=== PATIENT | male | born 1965 | race Hispanic/Latino ===

== ENCOUNTER 2021-08-20 16:31 | Inpatient (IN) | payer MEDICARE ==
[2021-08-20] MEDS ORDERED: Acetaminophen 500 MG TAB ONE (17:25)
[2021-08-20] MEDS ORDERED: Ondansetron PF 4 MG/2 ML Vial ONE (17:25)
[2021-08-20] MEDS ORDERED: Morphine 4 MG/ML VIAL ONE (17:25)
[2021-08-20 17:29] LABS: #Eosinphils 0.1 10x3/uL (0.0-0.5); #Monocytes 0.8 10x3/uL (0.0-1.1); #Neutrophils 6.6 10x3/uL (1.5-8.4); %Basophils 0.3 % (0.0-2.0); %Eosinophils 0.8 % (0.0-6.0); %Monocytes 9.7 % (0.0-10.0); %Neutrophils 84.8 % (40.0-75.0); Hemoglobin 10.7 g/dL (13.5-17.5); Mean Corpuscular HGB CONC 32.1 g/dL (32.0-36.0); Mean Corpuscular Hemoglobin 33.2 pg (27.0-33.0); Mean Corpuscular Volume 103.4 fl (81.2-95.1); Mean Platelet Volume 12.1 fl (7.4-10.4); Platelet Count 100 10x3/uL (150-450); Red Blood Cell (RBC) Count 3.22 10x6/uL (4.32-5.72); White Blood Cell (WBC) Count 7.8 10x3/uL (3.5-10.5)
[2021-08-20 17:45] LABS: ALT (SGPT) 27 U/L (8-55); AST (SGOT) 22 U/L (5-34); Alkaline Phosphatase 119 U/L (40-110); Anion Gap 19 mmol/L (10-20); BUN (Urea Nitrogen) 34 mg/dL (8.4-25.7); Bilirubin, Total 0.6 mg/dL (0.2-1.2); Calc. Creatinine Clearance 0 mL/min (70-130); Calcium 9.2 mg/dL (7.8-10.44); Carbon Dioxide 27 mmol/L (22-29); Chloride 97 mmol/L (98-107); Globulin 2.7 g/dL (2.4-3.5); Glucose 411 mg/dL (70-105); Potassium 3.5 mmol/L (3.5-5.1); Protein, Total 6.7 g/dL (6.0-8.3); Sodium 139 mmol/L (136-145)
[2021-08-20 17:49] LABS: Large Platelets SLIGHT; Platelet Morphology Comment Appears Adequate
[2021-08-20 17:50] LABS: Anisocytosis SLIGHT = 6-15 cells (100X) (0-5/hpf); Macrocytosis SLIGHT = 6-15 cells (100X) (0-5/hpf); Microcytosis SLIGHT = 6-15 cells (100X) (0-5/hpf)
[2021-08-20 17:51] LABS: Basophilic Stippling SLIGHT = 1-2 cells (100X) (None Seen); Polychromasia SLIGHT = 2-3 cells (100X) (0-2/hpf)
[2021-08-20 18:08] LABS: CKMB 5.3 ng/mL (0-6.6)
[2021-08-20 18:20] LABS: SARS-CoV-2 NAA Rapid Test Not Detected (NotDetected)
[2021-08-20 18:23] LABS: Lipase 170 U/L (8-78)
[2021-08-20] MEDS ORDERED: Cefepime 2 GM VIAL ONE (18:56)
[2021-08-20] MEDS ORDERED: Levofloxacin 500 mg/D5W 100 ml Premix Bag ONE (19:22)
[2021-08-20] MEDS ORDERED: Acetaminophen 325 MG TAB PO PRN (21:48)
[2021-08-20 22:11] VITALS: BMI 38.7
[2021-08-20] MEDS ORDERED: Furosemide 40 MG TAB PO SCH (22:15)
[2021-08-20] MEDS ORDERED: Heparin 5,000 UNITS/ML VIAL SC SCH (22:15)
[2021-08-20] MEDS ORDERED: Tamsulosin HCl 0.4 MG CAP PO SCH (22:15)
[2021-08-20] MEDS ORDERED: Gabapentin 300 MG CAP PO SCH (22:15)
[2021-08-20] MEDS ORDERED: Atorvastatin Calcium 40 MG TAB PO SCH (22:15)
[2021-08-20] MEDS ORDERED: hydrALAZINE 25 MG TAB PO SCH (22:15)
[2021-08-20] MEDS: traMADol HCl 50 MG TAB PO PRN (23:07)
[2021-08-20 23:34] LABS: Magnesium 1.8 mg/dL (1.6-2.6)
[2021-08-20 23:41] LABS: Troponin I 0.134 ng/mL (< 0.028)
[2021-08-21 04:12] LABS: Anion Gap 15 mmol/L (10-20); BUN (Urea Nitrogen) 39 mg/dL (8.4-25.7); Calc. Creatinine Clearance 29 mL/min (70-130); Calcium 8.1 mg/dL (7.8-10.44); Carbon Dioxide 26 mmol/L (22-29); Chloride 101 mmol/L (98-107); Glucose 301 mg/dL (70-105); Potassium 3.6 mmol/L (3.5-5.1); Sodium 138 mmol/L (136-145)
[2021-08-21 04:14] LABS: #Monocytes 0.8 10x3/uL (0.0-1.1); #Neutrophils 7.2 10x3/uL (1.5-8.4); %Basophils 0.1 % (0.0-2.0); %Eosinophils 0.4 % (0.0-6.0); %Lymphocytes 5.6 % (18.0-47.0); %Monocytes 8.8 % (0.0-10.0); %Neutrophils 84.6 % (40.0-75.0); Hemoglobin 8.3 g/dL (13.5-17.5); Mean Corpuscular HGB CONC 31.2 g/dL (32.0-36.0); Mean Corpuscular Hemoglobin 32.8 pg (27.0-33.0); Mean Corpuscular Volume 105.1 fl (81.2-95.1); Mean Platelet Volume 12.2 fl (7.4-10.4); Platelet Count 93 10x3/uL (150-450); RBC Distribution Width 14.3 % (11.5-14.5); Red Blood Cell (RBC) Count 2.53 10x6/uL (4.32-5.72); White Blood Cell (WBC) Count 8.5 10x3/uL (3.5-10.5)
[2021-08-21] MEDS ORDERED: Insulin Regular 300 UNITS/3 ML VIAL SC SCH (04:30)
[2021-08-21 05:08] LABS: Hypochromia SLIGHT = 6-15 cells (100X) (0-5/hpf)
[2021-08-21 05:09] LABS: Platelet Morphology Comment Appears Decreased
[2021-08-21] MEDS: Levothyroxine Sodium 125 MCG TAB PO SCH (05:24)
[2021-08-21 06:14] LABS: Troponin I 0.117 ng/mL (< 0.028)
[2021-08-21] MEDS ORDERED: Amlodipine 5 MG TAB PO SCH (08:45)
[2021-08-21] MEDS: Lantus 1000 UNITS/10 ML VIAL SC SCH (09:12)
[2021-08-21] MEDS: Heparin 5,000 UNITS/ML VIAL SC SCH ×3 (09:13→20:01)
[2021-08-21] MEDS: Metoclopramide HCl 10 MG TAB PO SCH ×3 (09:14→20:02)
[2021-08-21] MEDS: Aspirin 81 mg Enteric Coated Tablet PO SCH (09:14)
[2021-08-21] MEDS: hydrALAZINE 25 MG TAB PO SCH ×2 (09:16→20:01)
[2021-08-21] MEDS: Furosemide 40 MG TAB PO SCH ×2 (09:17→20:00)
[2021-08-21] MEDS: Cefepime 0.5 GM, Admixture Fee 1 EACH in Sodium Chloride 0.9% 100 ML IVPB SCH (19:51)
[2021-08-21] MEDS: Gabapentin 300 MG CAP PO SCH (20:00)
[2021-08-21] MEDS: Atorvastatin Calcium 40 MG TAB PO SCH (20:00)
[2021-08-21] MEDS: Tamsulosin HCl 0.4 MG CAP PO SCH (20:01)
[2021-08-22] MEDS: Levothyroxine Sodium 125 MCG TAB PO SCH (05:47)
[2021-08-22] MEDS ORDERED: Heparin 10,000 UNITS/ 10 ML VIAL SLOW IVP PRN (08:48)
[2021-08-22] MEDS ORDERED: EPOETIN ALFA-EPBX (ESRD) 4,000 UNIT/ML VIAL IVP PRN (08:50)
[2021-08-22] MEDS ORDERED: Lantus 1000 UNITS/10 ML VIAL SC ONE (11:29)
[2021-08-22] MEDS ORDERED: Lantus 1000 UNITS/10 ML VIAL SC SCH ×2 (11:29→21:00)
[2021-08-22] MEDS: Lantus 1000 UNITS/10 ML VIAL SC SCH (13:53)
[2021-08-22] MEDS: Metoclopramide HCl 10 MG TAB PO SCH ×3 (14:04→20:54)
[2021-08-22] MEDS: Heparin 5,000 UNITS/ML VIAL SC SCH ×3 (14:04→20:55)
[2021-08-22] MEDS ORDERED: Fluticasone Propionate Nasal Spray 16 gm Bottle NASAL SCH (14:45)
[2021-08-22] MEDS ORDERED: Loratadine 10 MG TAB PO SCH (14:48)
[2021-08-22] MEDS: hydrALAZINE 25 MG TAB PO SCH ×2 (15:04→20:53)
[2021-08-22] MEDS: Furosemide 40 MG TAB PO SCH ×2 (15:06→20:54)
[2021-08-22] MEDS: Aspirin 81 mg Enteric Coated Tablet PO SCH (15:06)
[2021-08-22] MEDS ORDERED: traZODone HCl 50 MG TAB PO PRN (15:55)
[2021-08-22] MEDS ORDERED: Glimepiride 2 MG TAB PO SCH (17:00)
[2021-08-22] MEDS: Cefepime 0.5 GM, Admixture Fee 1 EACH in Sodium Chloride 0.9% 100 ML IVPB SCH (19:39)
[2021-08-22] MEDS: Gabapentin 300 MG CAP PO SCH (20:53)
[2021-08-22] MEDS: Atorvastatin Calcium 40 MG TAB PO SCH (20:54)
[2021-08-22] MEDS: Tamsulosin HCl 0.4 MG CAP PO SCH (20:54)
[2021-08-23 06:11] LABS: Hemoglobin 8.3 g/dL (13.5-17.5); Mean Corpuscular HGB CONC 31.3 g/dL (32.0-36.0); Mean Corpuscular Hemoglobin 32.7 pg (27.0-33.0); Mean Corpuscular Volume 104.3 fl (81.2-95.1); Mean Platelet Volume 11.9 fl (7.4-10.4); Platelet Count 92 10x3/uL (150-450); Red Blood Cell (RBC) Count 2.54 10x6/uL (4.32-5.72); White Blood Cell (WBC) Count 5.5 10x3/uL (3.5-10.5)
[2021-08-23] MEDS: Levothyroxine Sodium 125 MCG TAB PO SCH (06:42)
[2021-08-23] MEDS ORDERED: Glimepiride 2 MG TAB PO SCH (08:00)
[2021-08-23] MEDS: hydrALAZINE 25 MG TAB PO SCH (08:47)
[2021-08-23] MEDS: traMADol HCl 50 MG TAB PO PRN (08:47)
[2021-08-23] MEDS: Aspirin 81 mg Enteric Coated Tablet PO SCH (08:48)
[2021-08-23] MEDS: Furosemide 40 MG TAB PO SCH (08:48)
[2021-08-23] MEDS: Metoclopramide HCl 10 MG TAB PO SCH ×2 (08:52→16:35)
[2021-08-23] MEDS ORDERED: Fluticasone Propionate Nasal Spray 16 gm Bottle NASAL SCH ×2 (09:00)
[2021-08-23] MEDS ORDERED: Loratadine 10 MG TAB PO SCH (09:00)
[2021-08-23] MEDS: Heparin 5,000 UNITS/ML VIAL SC SCH ×2 (11:46→16:35)
[2021-08-23 17:23] VITALS: BP 198/81; TEMP 97.8
== END 2021-08-23 17:50 | disposition home or self-care (01) | DRG 871 ==
LOC: CSHERS 16:31 → CSHTELE 21:30
PROVIDERS: ADMIT Family Medicine; ATTEND Internal Medicine
DX: A41.9 Sepsis, unspecified organism (principal); N18.6 End stage renal disease; J96.01 Acute respiratory failure with hypoxia; J15.9 Unspecified bacterial pneumonia; I50.32 Chronic diastolic (congestive) heart failure; I13.2 Hypertensive heart and chronic kidney disease with heart failure and with stage 5 chronic kidney disease, or end stage renal disease; E11.22 Type 2 diabetes mellitus with diabetic chronic kidney disease; I25.10 Atherosclerotic heart disease of native coronary artery without angina pectoris; E78.5 Hyperlipidemia, unspecified; K21.9 Gastro-esophageal reflux disease without esophagitis; N40.0 Benign prostatic hyperplasia without lower urinary tract symptoms; G47.33 Obstructive sleep apnea (adult) (pediatric); E03.9 Hypothyroidism, unspecified; E11.43 Type 2 diabetes mellitus with diabetic autonomic (poly)neuropathy; K31.84 Gastroparesis; E11.65 Type 2 diabetes mellitus with hyperglycemia; Z20.822 Contact with and (suspected) exposure to COVID-19; I16.0 Hypertensive urgency; D69.6 Thrombocytopenia, unspecified; Z95.1 Presence of aortocoronary bypass graft; Z88.8 Allergy status to other drugs, medicaments and biological substances; Z79.82 Long term (current) use of aspirin; Z79.899 Other long term (current) drug therapy; Z79.4 Long term (current) use of insulin; Z87.891 Personal history of nicotine dependence; Z99.2 Dependence on renal dialysis
CPT/HCPCS: 0241U; 36415; 36416; 71045; 71046; 80048; 80053; 82553; 83605; 83690; 83735; 84484; 85025; 85027; 87040; 87070; 87116; 87205; 87206; 90935; 93005; 93010; 93306; 94640; 94760; 96365; 96367; 96375; G0257; J0692; J1644; J1815; J1956; J2270; J2405; J3370; J3490; J7620; Q5105

== ENCOUNTER 2022-05-29 10:19 | Inpatient (IN) | payer MEDICARE, OTHER ==
[2022-05-29] MEDS ORDERED: diphenhydrAMINE 50 MG/ML VIAL ONE (10:41)
[2022-05-29] MEDS ORDERED: Metoclopramide HCl 10 MG/2 ML VIAL ONE (10:42)
[2022-05-29 10:58] LABS: #Monocytes 0.4 10x3/uL (0.0-1.1); #Neutrophils 15.9 10x3/uL (1.5-8.4); %Basophils 0.4 % (0.0-2.0); %Eosinophils 0.8 % (0.0-6.0); %Lymphocytes 15.2 % (18.0-47.0); %Monocytes 7.3 % (0.0-10.0); %Neutrophils 75.5 % (40.0-75.0); Hemoglobin 10.8 g/dL (13.5-17.5); Mean Corpuscular HGB CONC 34.3 g/dL (32.0-36.0); Mean Corpuscular Hemoglobin 33.2 pg (27.0-33.0); Mean Corpuscular Volume 96.9 fl (81.2-95.1); Mean Platelet Volume 12.7 fl (7.4-10.4); Platelet Count 85 10x3/uL (150-450); RBC Distribution Width 13.6 % (11.5-14.5); Red Blood Cell (RBC) Count 3.25 10x6/uL (4.32-5.72); White Blood Cell (WBC) Count 4.9 10x3/uL (3.5-10.5)
[2022-05-29 11:10] LABS: ALT (SGPT) 16 U/L (8-55); AST (SGOT) 27 U/L (5-34); Albumin 4.3 g/dL (3.5-5.0); Alkaline Phosphatase 84 U/L (40-110); Anion Gap 20 mmol/L (10-20); BUN (Urea Nitrogen) 19 mg/dL (8.4-25.7); Bilirubin, Total 1.3 mg/dL (0.2-1.2); Calc. Creatinine Clearance 0 mL/min (70-130); Calcium 10.1 mg/dL (7.8-10.44); Carbon Dioxide 24 mmol/L (22-29); Chloride 97 mmol/L (98-107); Estimated GFR 16; Globulin 2.9 g/dL (2.4-3.5); Glucose 78 mg/dL (70-105); Lipase 353 U/L (8-78); Potassium 3.7 mmol/L (3.5-5.1); Protein, Total 7.2 g/dL (6.0-8.3); Sodium 137 mmol/L (136-145)
[2022-05-29 11:22] LABS: Platelet Morphology Comment Appears Decreased; RBC Morphology Normal
[2022-05-29 11:30] LABS: CKMB 4.7 ng/mL (0-6.6)
[2022-05-29] MEDS ORDERED: Morphine 4 MG/ML VIAL ONE ×3 (11:36→16:00)
[2022-05-29] MEDS ORDERED: Bisacodyl 5 MG TAB PO PRN (14:14)
[2022-05-29] MEDS ORDERED: Senokot S 8.6-50 MG TAB PO PRN (14:14)
[2022-05-29] MEDS ORDERED: Acetaminophen 325 MG TAB PO PRN (14:14)
[2022-05-29] MEDS ORDERED: Acetaminophen 650 MG Suppository PR PRN (14:14)
[2022-05-29] MEDS ORDERED: Ondansetron ODT 4 MG TAB PO PRN (14:14)
[2022-05-29] MEDS ORDERED: Calcium Carbonate 500 MG ChewTAB PO PRN (14:14)
[2022-05-29] MEDS ORDERED: Nitroglycerin 0.4 MG TAB (25 Tab Bottle) SL PRN (14:32)
[2022-05-29] MEDS ORDERED: hydrALAZINE 20 MG/ML VIAL SLOW IVP PRN (14:39)
[2022-05-29] MEDS ORDERED: Labetalol HCl 100 MG/20 ML VIAL SLOW IVP PRN (14:39)
[2022-05-29] MEDS ORDERED: Artificial Tear Sol 15 ML BOT EA EYE PRN (14:39)
[2022-05-29] MEDS ORDERED: Moisturizing Cream (Eucerin) 113 GM JAR TOP PRN (14:39)
[2022-05-29] MEDS ORDERED: Dextrose 5% in Water 1,000 ML IV PRN (14:46)
[2022-05-29] MEDS ORDERED: Dextrose 50% Abboject 50 ML SYRINGE SLOW IVP PRN (14:46)
[2022-05-29] MEDS ORDERED: Promethazine HCl 25 MG/ML VIAL ONE (15:00)
[2022-05-29 15:06] LABS: Lactic Acid 0.8 mmol/L (0.5-2.2)
[2022-05-29 15:26] LABS: Alcohol Less than 10 mg/dL (Less than 10); Cardiac Risk 2.1 (Less than 4.5); Cholesterol 90 mg/dl (< 200 Desired); HDL Cholesterol 42 mg/dL (>60 Neg Risk); LDL Cholesterol, Calculated 36 mg/dL; Triglycerides 60 mg/dL (Less than 150)
[2022-05-29 15:30] LABS: Troponin I 0.049 ng/mL (< 0.028)
[2022-05-29] MEDS ORDERED: Lactated Ringer's 1,000 ML IV SCH ×2 (15:45→16:34)
[2022-05-29 15:48] LABS: CRP (Inflammatory) Less than 0.50 mg/dL (= or < 0.5)
[2022-05-29 16:16] LABS: Bilirubin Neg (Negative); Blood, Urine 50 (Negative); Clarity Clear (Clear); Glucose, Urine (Dipstick) 50 mg/dL (Negative); Ketone, Urine Negative (Negative); Leukocyte Negative (Negative); Nitrite Negative (Negative); Protein, Urine (Dipstick) 100 mg/dl (Neg-Trace); Urobilinogen Normal mg/dL (Less than 2)
[2022-05-29 16:29] LABS: Bacteria/HPF None Seen HPF (None Seen); Squamous Epithelial 0-3 HPF (0-3); WBC/HPF None Seen HPF (0-3)
[2022-05-29] MEDS ORDERED: niCARdipine 25 MG in Sodium Chloride 0.9% 250 ML 250 ML IVPB SCH (16:30)
[2022-05-29 17:12] LABS: Lactic Acid 0.7 mmol/L (0.5-2.2)
[2022-05-29 17:47] LABS: Troponin I 0.052 ng/mL (< 0.028)
[2022-05-29 19:08] LABS: Free T4 (Free Thyroxine) 1.46 ng/dL (0.70-1.48)
[2022-05-29 19:19] VITALS: BMI 35.4
[2022-05-29] MEDS: Morphine 4 MG/ML VIAL SLOW IVP PRN (20:36)
[2022-05-29] MEDS: Famotidine/PF 20 mg/2ml Vial SLOW IVP SCH (20:37)
[2022-05-29] MEDS: Lactated Ringer's 1,000 ML IV SCH (20:38)
[2022-05-29] MEDS ORDERED: Nitroglycerin 2% Ointment 1 INCH/1 GM Packet TOP SCH (21:00)
[2022-05-29] MEDS ORDERED: Promethazine HCl 12.5 MG in Sodium Chloride 0.9% 50 ML IVPB SCH (21:00)
[2022-05-29] MEDS: Heparin 5,000 UNITS/ML VIAL SC SCH (21:40)
[2022-05-30] MEDS: Morphine 4 MG/ML VIAL SLOW IVP PRN ×6 (00:10→21:01)
[2022-05-30] MEDS: Ondansetron PF 4 MG/2 ML Vial IVP PRN ×3 (04:53→21:00)
[2022-05-30 04:58] LABS: #Eosinphils 0.1 10x3/uL (0.0-0.5); #Monocytes 0.4 10x3/uL (0.0-1.1); #Neutrophils 2.3 10x3/uL (1.5-8.4); %Basophils 0.6 % (0.0-2.0); %Eosinophils 1.4 % (0.0-6.0); %Lymphocytes 22.3 % (18.0-47.0); %Monocytes 10.7 % (0.0-10.0); %Neutrophils 64.7 % (40.0-75.0); Hemoglobin 8.8 g/dL (13.5-17.5); Mean Corpuscular HGB CONC 32.4 g/dL (32.0-36.0); Mean Corpuscular Volume 101.9 fl (81.2-95.1); Platelet Count 70 10x3/uL (150-450); RBC Distribution Width 14.1 % (11.5-14.5); Red Blood Cell (RBC) Count 2.67 10x6/uL (4.32-5.72); White Blood Cell (WBC) Count 3.6 10x3/uL (3.5-10.5)
[2022-05-30 05:13] LABS: ALT (SGPT) 10 U/L (8-55); AST (SGOT) 18 U/L (5-34); Albumin 3.5 g/dL (3.5-5.0); Alkaline Phosphatase 66 U/L (40-110); Anion Gap 11 mmol/L (10-20); BUN (Urea Nitrogen) 25 mg/dL (8.4-25.7); Bilirubin, Total 0.7 mg/dL (0.2-1.2); Calc. Creatinine Clearance 25 mL/min (70-130); Carbon Dioxide 29 mmol/L (22-29); Chloride 103 mmol/L (98-107); Estimated GFR 12; Globulin 2.5 g/dL (2.4-3.5); Lipase 41 U/L (8-78); Potassium 3.8 mmol/L (3.5-5.1); Sodium 139 mmol/L (136-145)
[2022-05-30 05:22] LABS: Glucose 49 mg/dL (70-105)
[2022-05-30] MEDS: Dextrose 5%-Lactated Ringers 1,000 ML IV SCH (05:47)
[2022-05-30] MEDS: Lactated Ringer's 1,000 ML IV SCH (07:56)
[2022-05-30] MEDS: Heparin 5,000 UNITS/ML VIAL SC SCH ×4 (07:56→20:12)
[2022-05-30] MEDS: Aspirin Chewable 81 MG TAB PO SCH (08:54)
[2022-05-30] MEDS ORDERED: Labetalol HCl 100 MG/20 ML VIAL SLOW IVP PRN (16:00)
[2022-05-30] MEDS ORDERED: hydrALAZINE 25 MG TAB PO SCH (16:15)
[2022-05-30] MEDS: hydrALAZINE 25 MG TAB PO SCH (20:11)
[2022-05-30] MEDS: Famotidine/PF 20 mg/2ml Vial SLOW IVP SCH (20:12)
[2022-05-31] MEDS: Morphine 4 MG/ML VIAL SLOW IVP PRN ×5 (00:54→22:06)
[2022-05-31] MEDS: hydrALAZINE 20 MG/ML VIAL SLOW IVP PRN ×2 (00:55→06:01)
[2022-05-31 03:55] LABS: #Eosinphils 0.1 10x3/uL (0.0-0.5); #Monocytes 0.4 10x3/uL (0.0-1.1); #Neutrophils 2.4 10x3/uL (1.5-8.4); %Basophils 0.2 % (0.0-2.0); %Eosinophils 3.3 % (0.0-6.0); %Lymphocytes 29.7 % (18.0-47.0); %Monocytes 9.5 % (0.0-10.0); %Neutrophils 57.1 % (40.0-75.0); Hemoglobin 9.8 g/dL (13.5-17.5); Mean Corpuscular HGB CONC 32.2 g/dL (32.0-36.0); Mean Corpuscular Hemoglobin 32.7 pg (27.0-33.0); Mean Corpuscular Volume 101.3 fl (81.2-95.1); Mean Platelet Volume 12.5 fl (7.4-10.4); Platelet Count 84 10x3/uL (150-450); RBC Distribution Width 14.2 % (11.5-14.5); White Blood Cell (WBC) Count 4.2 10x3/uL (3.5-10.5)
[2022-05-31] MEDS: Dextrose 5%-Lactated Ringers 1,000 ML IV SCH ×3 (03:55→16:20)
[2022-05-31 04:11] LABS: ALT (SGPT) 14 U/L (8-55); AST (SGOT) 20 U/L (5-34); Albumin 3.7 g/dL (3.5-5.0); Alkaline Phosphatase 70 U/L (40-110); Anion Gap 12 mmol/L (10-20); BUN (Urea Nitrogen) 19 mg/dL (8.4-25.7); Bilirubin, Total 0.7 mg/dL (0.2-1.2); Calc. Creatinine Clearance 25 mL/min (70-130); Calcium 9.1 mg/dL (7.8-10.44); Carbon Dioxide 28 mmol/L (22-29); Chloride 103 mmol/L (98-107); Estimated GFR 12; Globulin 2.7 g/dL (2.4-3.5); Glucose 98 mg/dL (70-105); Potassium 3.7 mmol/L (3.5-5.1); Protein, Total 6.4 g/dL (6.0-8.3); Sodium 139 mmol/L (136-145)
[2022-05-31] MEDS: Levothyroxine Sodium 125 MCG TAB PO SCH (05:56)
[2022-05-31] MEDS: Ondansetron PF 4 MG/2 ML Vial IVP PRN ×3 (06:01→22:05)
[2022-05-31] MEDS: hydrALAZINE 25 MG TAB PO SCH ×2 (09:56→21:52)
[2022-05-31] MEDS: Heparin 5,000 UNITS/ML VIAL SC SCH ×3 (09:56→21:45)
[2022-05-31] MEDS: Aspirin Chewable 81 MG TAB PO SCH (09:56)
[2022-05-31] MEDS ORDERED: Heparin 10,000 UNITS/ 10 ML VIAL FS PRN (10:05)
[2022-05-31] MEDS ORDERED: Amlodipine 5 MG TAB PO SCH (16:00)
[2022-05-31] MEDS: Famotidine/PF 20 mg/2ml Vial SLOW IVP SCH (22:06)
[2022-06-01] MEDS: hydrALAZINE 20 MG/ML VIAL SLOW IVP PRN (00:28)
[2022-06-01] MEDS: Dextrose 5%-Lactated Ringers 1,000 ML IV SCH ×3 (00:32→21:22)
[2022-06-01] MEDS: Morphine 4 MG/ML VIAL SLOW IVP PRN ×2 (01:36→11:09)
[2022-06-01] MEDS: Levothyroxine Sodium 125 MCG TAB PO SCH (05:59)
[2022-06-01] MEDS ORDERED: Amlodipine 5 MG TAB PO SCH ×2 (09:00→21:00)
[2022-06-01] MEDS: hydrALAZINE 25 MG TAB PO SCH ×2 (15:47→21:23)
[2022-06-01] MEDS: Aspirin Chewable 81 MG TAB PO SCH (15:48)
[2022-06-01] MEDS: Heparin 5,000 UNITS/ML VIAL SC SCH ×4 (16:44→21:22)
[2022-06-01] MEDS: Famotidine/PF 20 mg/2ml Vial SLOW IVP SCH (21:17)
[2022-06-02 04:01] LABS: #Eosinphils 0.1 10x3/uL (0.0-0.5); #Monocytes 0.4 10x3/uL (0.0-1.1); %Basophils 0.5 % (0.0-2.0); %Eosinophils 3.1 % (0.0-6.0); %Lymphocytes 21.6 % (18.0-47.0); %Monocytes 9.5 % (0.0-10.0); Mean Corpuscular HGB CONC 33.5 g/dL (32.0-36.0); Mean Corpuscular Hemoglobin 33.5 pg (27.0-33.0); Mean Platelet Volume 12.9 fl (7.4-10.4); RBC Distribution Width 13.8 % (11.5-14.5); Red Blood Cell (RBC) Count 3.28 10x6/uL (4.32-5.72); White Blood Cell (WBC) Count 3.9 10x3/uL (3.5-10.5)
[2022-06-02 04:02] LABS: Platelet Count 79 10x3/uL (150-450)
[2022-06-02 04:08] LABS: Anion Gap 14 mmol/L (10-20); BUN (Urea Nitrogen) 16 mg/dL (8.4-25.7); Calc. Creatinine Clearance 25 mL/min (70-130); Calcium 9.6 mg/dL (7.8-10.44); Carbon Dioxide 27 mmol/L (22-29); Chloride 99 mmol/L (98-107); Estimated GFR 12; Glucose 127 mg/dL (70-105); Potassium 3.9 mmol/L (3.5-5.1); Sodium 136 mmol/L (136-145)
[2022-06-02] MEDS: Levothyroxine Sodium 125 MCG TAB PO SCH (05:59)
[2022-06-02 06:30] VITALS: TEMP 97.9
[2022-06-02] MEDS ORDERED: Amlodipine 5 MG TAB PO SCH ×2 (09:00)
[2022-06-02 09:20] VITALS: BP 201/90
[2022-06-02] MEDS: Heparin 5,000 UNITS/ML VIAL SC SCH (09:43)
[2022-06-02] MEDS: Aspirin Chewable 81 MG TAB PO SCH (09:52)
[2022-06-02] MEDS: hydrALAZINE 25 MG TAB PO SCH (09:53)
== END 2022-06-02 11:00 | disposition home or self-care (01) | DRG 438 ==
LOC: CSHERS 10:19 → CSHTELE 15:24 → OBSVTOIN 15:25 → CSHTELE 19:07 → UNDOADMOB 19:07
PROVIDERS: ADMIT Family Medicine; ATTEND Family Medicine
PROC: 5A09357 Assistance with Respiratory Ventilation, Less than 24 Consecutive Hours, Continuous Positive Airway Pressure (ICD-10-PCS; principal; 2022-05-31)
PROC: 5A1D70Z Performance of Urinary Filtration, Intermittent, Less than 6 Hours Per Day (ICD-10-PCS; 2022-06-01)
DX: K85.90 Acute pancreatitis without necrosis or infection, unspecified (principal); N18.6 End stage renal disease; I16.1 Hypertensive emergency; I12.0 Hypertensive chronic kidney disease with stage 5 chronic kidney disease or end stage renal disease; E11.22 Type 2 diabetes mellitus with diabetic chronic kidney disease; E78.5 Hyperlipidemia, unspecified; I25.10 Atherosclerotic heart disease of native coronary artery without angina pectoris; R77.8 Other specified abnormalities of plasma proteins; R63.4 Abnormal weight loss; Z20.822 Contact with and (suspected) exposure to COVID-19; I16.0 Hypertensive urgency; E03.9 Hypothyroidism, unspecified; Z95.1 Presence of aortocoronary bypass graft; Z98.890 Other specified postprocedural states; Z89.422 Acquired absence of other left toe(s); Z88.8 Allergy status to other drugs, medicaments and biological substances; Z79.82 Long term (current) use of aspirin; Z79.899 Other long term (current) drug therapy; Z99.2 Dependence on renal dialysis; Z68.35 Body mass index [BMI] 35.0-35.9, adult
CPT/HCPCS: 36415; 36416; 71045; 74176; 76705; 80048; 80053; 80061; 80307; 81003; 81015; 82553; 83605; 83615; 83690; 84439; 84443; 84481; 84484; 85025; 86140; 90935; 93005; 96374; 96375; 96376; G0257; G0378; J0360; J1200; J1644; J2270; J2405; J2550; J2765; J7070; J7120; J7999; S0028; U0003; U0005

== ENCOUNTER 2022-09-24 12:43 | Inpatient (IN) | payer MEDICARE, OTHER ==
[2022-09-24 13:18] LABS: #Eosinphils 0.1 10x3/uL (0.0-0.5); #Monocytes 0.4 10x3/uL (0.0-1.1); #Neutrophils 3.3 10x3/uL (1.5-8.4); %Basophils 0.4 % (0.0-2.0); %Lymphocytes 15.8 % (18.0-47.0); %Monocytes 9.7 % (0.0-10.0); %Neutrophils 71.4 % (40.0-75.0); Hemoglobin 9.7 g/dL (13.5-17.5); Mean Corpuscular HGB CONC 33.2 g/dL (32.0-36.0); Mean Corpuscular Hemoglobin 34.3 pg (27.0-33.0); Mean Corpuscular Volume 103.2 fl (81.2-95.1); Mean Platelet Volume 12.5 fl (7.4-10.4); Platelet Count 113 10x3/uL (150-450); RBC Distribution Width 14.6 % (11.5-14.5); Red Blood Cell (RBC) Count 2.83 10x6/uL (4.32-5.72); White Blood Cell (WBC) Count 4.6 10x3/uL (3.5-10.5)
[2022-09-24 13:39] LABS: ALT (SGPT) 48 U/L (8-55); AST (SGOT) 38 U/L (5-34); Albumin 4.3 g/dL (3.5-5.0); Alkaline Phosphatase 109 U/L (40-110); Anion Gap 19 mmol/L (10-20); BUN (Urea Nitrogen) 31 mg/dL (8.4-25.7); Bilirubin, Total 1.2 mg/dL (0.2-1.2); Calc. Creatinine Clearance 0 mL/min (70-130); Calcium 10.2 mg/dL (7.8-10.44); Carbon Dioxide 23 mmol/L (22-29); Chloride 101 mmol/L (98-107); Estimated GFR 12; Globulin 2.9 g/dL (2.4-3.5); Glucose 74 mg/dL (70-105); Potassium 4.1 mmol/L (3.5-5.1); Protein, Total 7.2 g/dL (6.0-8.3); Sodium 139 mmol/L (136-145)
[2022-09-24 13:40] LABS: Bilirubin Neg (Negative); Blood, Urine 25 (Negative); Clarity Clear (Clear); Glucose, Urine (Dipstick) Normal (Negative); Ketone, Urine Negative (Negative); Leukocyte Negative (Negative); Nitrite Negative (Negative); Protein, Urine (Dipstick) 100 mg/dl (Neg-Trace); Specific Gravity, Urine 1.015 (1.005-1.030); Urobilinogen Normal mg/dL (Less than 2)
[2022-09-24] MEDS ORDERED: Morphine 4 MG/ML VIAL ONE ×3 (13:47→17:09)
[2022-09-24] MEDS ORDERED: Ondansetron PF 4 MG/2 ML Vial ONE (13:47)
[2022-09-24 13:54] LABS: RBC/HPF 0-3 HPF (0-3); WBC/HPF 0-3 HPF (0-3)
[2022-09-24 13:55] LABS: Bacteria/HPF Rare-Few HPF (None Seen); Squamous Epithelial 0-3 HPF (0-3)
[2022-09-24 14:02] LABS: CKMB 3.6 ng/mL (0-6.6)
[2022-09-24] MEDS ORDERED: Aspirin Chewable 81 MG TAB ONE (15:17)
[2022-09-24] MEDS ORDERED: Furosemide 40 MG/4 ML VIAL ONE (15:17)
[2022-09-24] MEDS ORDERED: Nitroglycerin 0.4 MG TAB (25 Tab Bottle) SL PRN (16:17)
[2022-09-24] MEDS ORDERED: Morphine 4 MG/ML VIAL SLOW IVP PRN (16:28)
[2022-09-24] MEDS ORDERED: Morphine 2 MG/ML VIAL SLOW IVP PRN ×2 (16:29→17:04)
[2022-09-24] MEDS ORDERED: Ondansetron PF 4 MG/2 ML Vial IVP PRN (16:34)
[2022-09-24] MEDS ORDERED: Ondansetron ODT 4 MG TAB PO PRN (16:34)
[2022-09-24 16:39] LABS: Lipase 766 U/L (8-78); Magnesium 1.9 mg/dL (1.6-2.6)
[2022-09-24 19:50] LABS: Troponin I 0.068 ng/mL (< 0.028)
[2022-09-24 20:44] LABS: SARS-CoV-2 NAA Rapid Test Not Detected (NotDetected)
[2022-09-24] MEDS ORDERED: Heparin 5,000 UNITS/ML VIAL SC SCH (21:00)
[2022-09-24 21:11] VITALS: BMI 33.6
[2022-09-25] MEDS: Morphine 4 MG/ML VIAL SLOW IVP PRN ×4 (00:23→21:30)
[2022-09-25] MEDS ORDERED: Prevnar 13-Val Conj/PF 0.5 ML SYRINGE IM ONE (01:15)
[2022-09-25] MEDS ORDERED: FLU VACC QS2022-23(6MOS UP)/PF 60 MCG/0.5 ML SYRINGE IM ONE (01:15)
[2022-09-25 05:16] LABS: Anion Gap 15 mmol/L (10-20); BUN (Urea Nitrogen) 35 mg/dL (8.4-25.7); Calc. Creatinine Clearance 20 mL/min (70-130); Calcium 9.1 mg/dL (7.8-10.44); Carbon Dioxide 25 mmol/L (22-29); Cardiac Risk 2.3 (Less than 4.5); Chloride 105 mmol/L (98-107); Cholesterol 92 mg/dl (< 200 Desired); Estimated GFR 10; Glucose 28 mg/dL (70-105); HDL Cholesterol 40 mg/dL (>60 Neg Risk); LDL Cholesterol, Calculated 40 mg/dL; Potassium 3.6 mmol/L (3.5-5.1); Sodium 141 mmol/L (136-145); Triglycerides 59 mg/dL (Less than 150)
[2022-09-25 05:20] LABS: #Eosinphils 0.2 10x3/uL (0.0-0.5); #Monocytes 0.5 10x3/uL (0.0-1.1); #Neutrophils 2.6 10x3/uL (1.5-8.4); %Basophils 0.5 % (0.0-2.0); %Eosinophils 3.6 % (0.0-6.0); %Lymphocytes 23.8 % (18.0-47.0); %Monocytes 10.7 % (0.0-10.0); %Neutrophils 61.2 % (40.0-75.0); Hemoglobin 8.3 g/dL (13.5-17.5); Mean Corpuscular HGB CONC 32.2 g/dL (32.0-36.0); Mean Corpuscular Hemoglobin 34.3 pg (27.0-33.0); Mean Corpuscular Volume 106.6 fl (81.2-95.1); Mean Platelet Volume 11.5 fl (7.4-10.4); Platelet Count 87 10x3/uL (150-450); RBC Distribution Width 14.8 % (11.5-14.5); Red Blood Cell (RBC) Count 2.42 10x6/uL (4.32-5.72); White Blood Cell (WBC) Count 4.2 10x3/uL (3.5-10.5)
[2022-09-25] MEDS ORDERED: Dextrose 50% Abboject 50 ML SYRINGE ONE (05:24)
[2022-09-25] MEDS ORDERED: Dextrose 50% Abboject 50 ML SYRINGE SLOW IVP SCH (05:45)
[2022-09-25 06:55] LABS: Ovalocytes SLIGHT = 2-5 cells (100X) (0-1/hpf); Tear Drops SLIGHT = 2-5 cells (100X) (0-1/hpf)
[2022-09-25 06:56] LABS: Platelet Morphology Comment Appears Decreased
[2022-09-25] MEDS ORDERED: HumaLOG 300 UNITS/3 ML VIAL SC PRN (08:06)
[2022-09-25] MEDS ORDERED: Dextrose 5% in Water 1,000 ML IV PRN (08:06)
[2022-09-25] MEDS ORDERED: Dextrose 50% Abboject 50 ML SYRINGE SLOW IVP PRN (08:06)
[2022-09-25] MEDS: Furosemide 100 MG/10 ML VIAL FS SCH ×2 (09:07→16:59)
[2022-09-25] MEDS: Aspirin Chewable 81 MG TAB PO SCH (09:09)
[2022-09-25] MEDS: Heparin 5,000 UNITS/ML VIAL SC SCH ×2 (09:10→21:42)
[2022-09-25 10:26] LABS: HBSAg Index 0.15 S/CO (0-0.99); Hep B Surf Ag Non-Reactive S/CO (NonReactive)
[2022-09-25] MEDS ORDERED: cloNIDine 0.1 MG TAB PO SCH ×2 (10:45→17:00)
[2022-09-25] MEDS ORDERED: Prochlorperazine Edisylate 10 MG in Sodium Chloride 0.9% 50 ML IVPB PRN (14:43)
[2022-09-25 15:07] LABS: HBSAB Concentration 600.89 mIU/mL; Hep B Surf AB Reactive (NonReactive)
[2022-09-25] MEDS: Lactated Ringer's 1,000 ML IV SCH (16:39)
[2022-09-25] MEDS: Gabapentin 300 MG CAP PO SCH (21:24)
[2022-09-25] MEDS: Atorvastatin Calcium 40 MG TAB PO SCH (21:24)
[2022-09-25] MEDS: Tamsulosin HCl 0.4 MG CAP PO SCH (21:25)
[2022-09-25] MEDS: cloNIDine 0.1 MG TAB PO SCH (21:26)
[2022-09-26] MEDS: Lactated Ringer's 1,000 ML IV SCH ×2 (02:19→11:45)
[2022-09-26 04:50] LABS: Anion Gap 12 mmol/L (10-20); BUN (Urea Nitrogen) 15 mg/dL (8.4-25.7); Calc. Creatinine Clearance 31 mL/min (70-130); Carbon Dioxide 29 mmol/L (22-29); Chloride 101 mmol/L (98-107); Estimated GFR 17; Glucose 110 mg/dL (70-105); Lipase 10 U/L (8-78); Potassium 3.9 mmol/L (3.5-5.1); Sodium 138 mmol/L (136-145)
[2022-09-26] MEDS: Levothyroxine Sodium 125 MCG TAB PO SCH (05:24)
[2022-09-26] MEDS: cloNIDine 0.1 MG TAB PO SCH ×3 (08:43→20:48)
[2022-09-26] MEDS: Aspirin Chewable 81 MG TAB PO SCH (08:43)
[2022-09-26] MEDS: Heparin 5,000 UNITS/ML VIAL SC SCH ×2 (11:44→21:56)
[2022-09-26] MEDS: Furosemide 100 MG/10 ML VIAL FS SCH ×2 (13:29→13:52)
[2022-09-26] MEDS: hydrALAZINE 25 MG TAB PO SCH ×2 (13:52→20:49)
[2022-09-26] MEDS: Tamsulosin HCl 0.4 MG CAP PO SCH (20:48)
[2022-09-26] MEDS: Atorvastatin Calcium 40 MG TAB PO SCH (20:48)
[2022-09-26] MEDS: Gabapentin 300 MG CAP PO SCH (20:49)
[2022-09-27] MEDS: Levothyroxine Sodium 125 MCG TAB PO SCH (06:21)
[2022-09-27 07:17] VITALS: TEMP 97.6
[2022-09-27 08:32] VITALS: BP 165/85
[2022-09-27] MEDS: Heparin 5,000 UNITS/ML VIAL SC SCH (08:32)
[2022-09-27] MEDS: Aspirin Chewable 81 MG TAB PO SCH (08:32)
[2022-09-27] MEDS: hydrALAZINE 25 MG TAB PO SCH (08:32)
[2022-09-27] MEDS ORDERED: cloNIDine 0.1 MG TAB PO SCH (09:00)
== END 2022-09-27 10:44 | disposition home or self-care (01) | DRG 438 ==
LOC: CSHERS 12:43 → CSHTELE 20:29
PROVIDERS: ADMIT Student in an Organized Health Care Education/Training Program; ATTEND Internal Medicine
PROC: 5A1D70Z Performance of Urinary Filtration, Intermittent, Less than 6 Hours Per Day (ICD-10-PCS; principal; 2022-09-25)
DX: K85.90 Acute pancreatitis without necrosis or infection, unspecified (principal); I21.A1 Myocardial infarction type 2; I50.33 Acute on chronic diastolic (congestive) heart failure; N18.6 End stage renal disease; I13.2 Hypertensive heart and chronic kidney disease with heart failure and with stage 5 chronic kidney disease, or end stage renal disease; E11.22 Type 2 diabetes mellitus with diabetic chronic kidney disease; E11.51 Type 2 diabetes mellitus with diabetic peripheral angiopathy without gangrene; Z20.822 Contact with and (suspected) exposure to COVID-19; I25.10 Atherosclerotic heart disease of native coronary artery without angina pectoris; Z95.1 Presence of aortocoronary bypass graft; Z79.899 Other long term (current) drug therapy; Z88.8 Allergy status to other drugs, medicaments and biological substances; Z79.890 Hormone replacement therapy; Z79.82 Long term (current) use of aspirin; Z79.4 Long term (current) use of insulin; Z89.422 Acquired absence of other left toe(s); Z99.2 Dependence on renal dialysis
CPT/HCPCS: 36415; 36416; 71045; 74176; 80048; 80053; 80061; 81003; 81015; 82553; 83690; 83735; 83880; 84443; 84484; 85025; 86706; 87340; 90935; 93005; 94760; 96374; 96375; 96376; G0257; J0780; J1644; J1940; J2270; J2405; J7999; U0002

== ENCOUNTER 2022-11-22 01:03 | Inpatient (IN) | payer MEDICARE, OTHER ==
[2022-11-22] MEDS ORDERED: Dextrose 50% Abboject 50 ML SYRINGE ONE ×6 (01:34→07:19)
[2022-11-22 02:38] LABS: ALT (SGPT) 29 U/L (8-55); AST (SGOT) 27 U/L (5-34); Albumin 3.3 g/dL (3.5-5.0); Alkaline Phosphatase 87 U/L (40-110); Anion Gap 17 mmol/L (10-20); BUN (Urea Nitrogen) 57 mg/dL (8.4-25.7); Bilirubin, Total 0.8 mg/dL (0.2-1.2); Calc. Creatinine Clearance 0 mL/min (70-130); Calcium 8.4 mg/dL (7.8-10.44); Carbon Dioxide 23 mmol/L (22-29); Chloride 96 mmol/L (98-107); Estimated GFR 9; Globulin 2.8 g/dL (2.4-3.5); Glucose 87 mg/dL (70-105); Lipase 91 U/L (8-78); Platelet Count 63 10x3/uL (150-450); Potassium 3.8 mmol/L (3.5-5.1); Protein, Total 6.1 g/dL (6.0-8.3); Sodium 132 mmol/L (136-145)
[2022-11-22 02:39] LABS: #Monocytes 0.8 10x3/uL (0.0-1.1); #Neutrophils 9.2 10x3/uL (1.5-8.4); %Eosinophils 0.2 % (0.0-6.0); %Lymphocytes 3.8 % (18.0-47.0); %Monocytes 7.5 % (0.0-10.0); Hemoglobin 7.5 g/dL (13.5-17.5); Mean Corpuscular HGB CONC 33.3 g/dL (32.0-36.0); Mean Corpuscular Hemoglobin 33.9 pg (27.0-33.0); Mean Corpuscular Volume 101.8 fl (81.2-95.1); Mean Platelet Volume 12.5 fl (7.4-10.4); RBC Distribution Width 14.4 % (11.5-14.5); Red Blood Cell (RBC) Count 2.21 10x6/uL (4.32-5.72); White Blood Cell (WBC) Count 10.5 10x3/uL (3.5-10.5)
[2022-11-22] MEDS ORDERED: Ondansetron PF 4 MG/2 ML Vial ONE ×2 (03:20→11:14)
[2022-11-22] MEDS ORDERED: Calcium Carbonate 500 MG ChewTAB PO PRN (04:13)
[2022-11-22] MEDS ORDERED: Senokot S 8.6-50 MG TAB PO PRN (04:13)
[2022-11-22] MEDS ORDERED: Acetaminophen 325 MG TAB PO PRN (04:13)
[2022-11-22] MEDS ORDERED: Guaifenesin DM 100-10/5 ML UDCUP PO PRN (04:13)
[2022-11-22] MEDS ORDERED: Dextrose 5% in Water 1,000 ML IV PRN (04:13)
[2022-11-22 04:41] LABS: Glucose 47 mg/dL (70-105); Glucose POC Confirmation 47 mg/dL (80-115)
[2022-11-22] MEDS ORDERED: Promethazine HCl 25 MG/ML VIAL ONE (04:58)
[2022-11-22] MEDS ORDERED: Famotidine/PF 20 mg/2ml Vial ONE (05:03)
[2022-11-22] MEDS: Dextrose 50% Abboject 50 ML SYRINGE SLOW IVP PRN ×6 (05:49→16:32)
[2022-11-22] MEDS ORDERED: Promethazine HCl 12.5 MG, Admixture Fee 1 EACH in Sodium Chloride 0.9% 50 ML IVPB SCH ×2 (06:00→20:30)
[2022-11-22] MEDS ORDERED: Dextrose 10% in Water 1,000 ML IV SCH ×2 (06:00→09:00)
[2022-11-22] MEDS ORDERED: Famotidine/PF 20 mg/2ml Vial SLOW IVP SCH (06:00)
[2022-11-22] MEDS: Levothyroxine Sodium 125 MCG TAB PO SCH (06:06)
[2022-11-22] MEDS ORDERED: Furosemide 40 MG TAB PO SCH (07:30)
[2022-11-22 07:52] LABS: SARS-CoV-2 NAA Rapid Test Not Detected (NotDetected)
[2022-11-22] MEDS ORDERED: hydrALAZINE 25 MG TAB PO SCH ×2 (09:00→15:00)
[2022-11-22] MEDS ORDERED: Octreotide Acetate 100 MCG in Sodium Chloride 0.9% 50 ML IVPB PRN (09:41)
[2022-11-22] MEDS ORDERED: Octreotide Acetate 100 MCG/ML VIAL ONE (09:44)
[2022-11-22] MEDS ORDERED: Octreotide Acetate 100 MCG in Sodium Chloride 0.9% 50 ML IVPB SCH (10:00)
[2022-11-22] MEDS: Ondansetron PF 4 MG/2 ML Vial IVP PRN ×3 (11:14→21:32)
[2022-11-22] MEDS ORDERED: Metoclopramide HCl 10 MG TAB ONE (11:57)
[2022-11-22] MEDS ORDERED: Aspirin 81 mg Enteric Coated Tablet ONE (11:57)
[2022-11-22] MEDS ORDERED: Furosemide 40 MG/4 ML VIAL ONE (11:57)
[2022-11-22] MEDS ORDERED: STERILE WATER IV SCH ×3 (12:00→17:15)
[2022-11-22] MEDS ORDERED: WATER IV SCH ×3 (12:00→17:15)
[2022-11-22] MEDS ORDERED: DEXTROSE IV SCH ×2 (12:00→17:15)
[2022-11-22] MEDS ORDERED: Furosemide 40 MG/4 ML VIAL SLOW IVP SCH (12:00)
[2022-11-22] MEDS ORDERED: DEXTROSE 70% IV SCH (12:00)
[2022-11-22] MEDS: Folic Acid/Vit B Comp W-C PO SCH (12:05)
[2022-11-22] MEDS: Metoclopramide HCl 10 MG TAB PO SCH (12:05)
[2022-11-22] MEDS: Aspirin 81 mg Enteric Coated Tablet PO SCH (12:05)
[2022-11-22 12:14] LABS: Hemoglobin A1c 5.8 % (4.0-6.0)
[2022-11-22 14:39] LABS: Reference Lab Name LABCORP
[2022-11-22 14:40] LABS: Ref Lab Test Ordered SULFONYLUREA QT
[2022-11-22 14:46] LABS: Bilirubin Neg (Negative); Blood, Urine 150 (Negative); Glucose, Urine (Dipstick) Normal (Negative); Ketone, Urine Negative (Negative); Leukocyte 25 (Negative); Nitrite Negative (Negative); Protein, Urine (Dipstick) 100 mg/dl (Neg-Trace); Specific Gravity, Urine 1.005 (1.005-1.030)
[2022-11-22 14:56] LABS: Amphetamine Not Detected (NotDetected); Barbiturates Screen Not Detected (NotDetected); Benzodiazepine Screen Not Detected (NotDetected); Cocaine Metabolite Screen Not Detected (NotDetected); Methadone Not Detected (NotDetected); Methamphetamine Not Detected (NotDetected); Opiate Screen Not Detected (NotDetected); Oxycodone Screen Not Detected (NotDetected); Phencyclidine (PCP) Not Detected (NotDetected); THC/Cannabinoid Screen Detected (NotDetected); Tricyclic Screen Not Detected (NotDetected)
[2022-11-22] MEDS ORDERED: hydrALAZINE 25 MG TAB PO PRN (15:38)
[2022-11-22 16:02] LABS: Bacteria/HPF 1+ HPF (None Seen); Squamous Epithelial 0-3 HPF (0-3)
[2022-11-22 16:12] LABS: SARS-CoV-2 NAA Rapid Test Not Detected (NotDetected)
[2022-11-22 16:17] LABS: Clarity Hazy (Clear)
[2022-11-22] MEDS: cefTRIAXone\\ROCEPHIN 1 GM in Sodium Chloride 0.9% 100 ML IVPB SCH (16:37)
[2022-11-22 16:49] LABS: Magnesium 1.7 mg/dL (1.6-2.6); Phosphorus 5.7 mg/dL (2.3-4.7)
[2022-11-22] MEDS ORDERED: methylPREDNISolone Sod Succ 40 MG VIAL IVP SCH (18:00)
[2022-11-22] MEDS ORDERED: hydrALAZINE 20 MG/ML VIAL ONE (18:47)
[2022-11-22] MEDS ORDERED: Labetalol HCl 100 MG/20 ML VIAL SLOW IVP PRN (19:10)
[2022-11-22] MEDS ORDERED: hydrALAZINE 20 MG/ML VIAL SLOW IVP PRN (19:10)
[2022-11-22 20:02] LABS: Legionella Urinary Ag Negative (Negative)
[2022-11-22] MEDS: Atorvastatin Calcium 40 MG TAB PO SCH (20:41)
[2022-11-22] MEDS: Gabapentin 300 MG CAP PO SCH (20:42)
[2022-11-22] MEDS: rOPINIRole HCl 0.25 MG TAB PO SCH (20:42)
[2022-11-22] MEDS: Tamsulosin HCl 0.4 MG CAP PO SCH (20:42)
[2022-11-22] MEDS ORDERED: EPOETIN ALFA-EPBX (ESRD) 4,000 UNIT/ML VIAL SC SCH (21:00)
[2022-11-23] MEDS: Insulin Regular 300 UNITS/3 ML VIAL SC PRN ×6 (03:11→20:23)
[2022-11-23] MEDS ORDERED: ALPRAZolam 0.25 MG TAB PO SCH (03:15)
[2022-11-23 04:21] LABS: #Monocytes 0.1 10x3/uL (0.0-1.1); #Neutrophils 6.8 10x3/uL (1.5-8.4); %Lymphocytes 1.7 % (18.0-47.0); %Monocytes 0.7 % (0.0-10.0); Hemoglobin 6.3 g/dL (13.5-17.5); Mean Corpuscular HGB CONC 32.1 g/dL (32.0-36.0); Mean Corpuscular Hemoglobin 33.2 pg (27.0-33.0); Mean Corpuscular Volume 103.2 fl (81.2-95.1); Mean Platelet Volume 12.5 fl (7.4-10.4); Platelet Count 62 10x3/uL (150-450); RBC Distribution Width 13.9 % (11.5-14.5)
[2022-11-23 04:48] LABS: ALT (SGPT) 23 U/L (8-55); AST (SGOT) 20 U/L (5-34); Albumin 2.6 g/dL (3.5-5.0); Alkaline Phosphatase 68 U/L (40-110); Anion Gap 14 mmol/L (10-20); BUN (Urea Nitrogen) 32 mg/dL (8.4-25.7); Bilirubin, Total 0.6 mg/dL (0.2-1.2); Calc. Creatinine Clearance 32 mL/min (70-130); Carbon Dioxide 20 mmol/L (22-29); Chloride 107 mmol/L (98-107); Estimated GFR 17; Globulin 2.2 g/dL (2.4-3.5); Glucose 373 mg/dL (70-105); Potassium 3.6 mmol/L (3.5-5.1); Protein, Total 4.8 g/dL (6.0-8.3); Sodium 137 mmol/L (136-145)
[2022-11-23 06:08] VITALS: BMI 34.7
[2022-11-23] MEDS: Levothyroxine Sodium 125 MCG TAB PO SCH (06:30)
[2022-11-23] MEDS ORDERED: Furosemide 40 MG TAB PO SCH (07:30)
[2022-11-23] MEDS ORDERED: Lantus 1000 UNITS/10 ML VIAL SC SCH (08:00)
[2022-11-23] MEDS: Aspirin 81 mg Enteric Coated Tablet PO SCH (08:58)
[2022-11-23] MEDS: Thiamine 100 MG TAB PO SCH (08:59)
[2022-11-23] MEDS ORDERED: Furosemide 40 MG/4 ML VIAL SLOW IVP SCH (09:00)
[2022-11-23] MEDS: Metoclopramide HCl 10 MG TAB PO SCH (09:10)
[2022-11-23] MEDS: Folic Acid/Vit B Comp W-C PO SCH (10:37)
[2022-11-23] MEDS: ALPRAZolam 0.25 MG TAB PO PRN ×2 (10:58→20:22)
[2022-11-23 11:23] LABS: Hemoglobin 7.3 g/dL (13.5-17.5); Platelet Count 80 10x3/uL (150-450)
[2022-11-23] MEDS: cefTRIAXone\\ROCEPHIN 1 GM in Sodium Chloride 0.9% 100 ML IVPB SCH (16:35)
[2022-11-23] MEDS: rOPINIRole HCl 0.25 MG TAB PO SCH (20:20)
[2022-11-23] MEDS: Tamsulosin HCl 0.4 MG CAP PO SCH (20:20)
[2022-11-23] MEDS: Atorvastatin Calcium 40 MG TAB PO SCH (20:20)
[2022-11-23] MEDS: Gabapentin 300 MG CAP PO SCH (20:20)
[2022-11-23] MEDS: Lantus 1000 UNITS/10 ML VIAL SC SCH (20:22)
[2022-11-24 04:59] LABS: #Eosinphils 0.1 10x3/uL (0.0-0.5); #Monocytes 0.6 10x3/uL (0.0-1.1); #Neutrophils 6.9 10x3/uL (1.5-8.4); %Basophils 0.1 % (0.0-2.0); %Eosinophils 0.6 % (0.0-6.0); %Lymphocytes 9.7 % (18.0-47.0); %Monocytes 6.7 % (0.0-10.0); %Neutrophils 82.7 % (40.0-75.0); Hemoglobin 7.2 g/dL (13.5-17.5); Mean Corpuscular HGB CONC 32.1 g/dL (32.0-36.0); Mean Corpuscular Hemoglobin 33.5 pg (27.0-33.0); Mean Corpuscular Volume 104.2 fl (81.2-95.1); Mean Platelet Volume 12.1 fl (7.4-10.4); Platelet Count 83 10x3/uL (150-450); RBC Distribution Width 13.7 % (11.5-14.5); Red Blood Cell (RBC) Count 2.15 10x6/uL (4.32-5.72); White Blood Cell (WBC) Count 8.3 10x3/uL (3.5-10.5)
[2022-11-24 05:06] LABS: ALT (SGPT) 33 U/L (8-55); AST (SGOT) 30 U/L (5-34); Albumin 3.2 g/dL (3.5-5.0); Alkaline Phosphatase 88 U/L (40-110); Anion Gap 16 mmol/L (10-20); BUN (Urea Nitrogen) 70 mg/dL (8.4-25.7); Bilirubin, Total 0.6 mg/dL (0.2-1.2); Calc. Creatinine Clearance 20 mL/min (70-130); Calcium 8.5 mg/dL (7.8-10.44); Carbon Dioxide 24 mmol/L (22-29); Chloride 104 mmol/L (98-107); Estimated GFR 9; Globulin 2.7 g/dL (2.4-3.5); Glucose 91 mg/dL (70-105); Potassium 4.5 mmol/L (3.5-5.1); Protein, Total 5.9 g/dL (6.0-8.3); Sodium 139 mmol/L (136-145)
[2022-11-24] MEDS: Levothyroxine Sodium 125 MCG TAB PO SCH (05:25)
[2022-11-24 08:55] VITALS: TEMP 97.6
[2022-11-24] MEDS: Thiamine 100 MG TAB PO SCH (10:07)
[2022-11-24] MEDS: Metoclopramide HCl 10 MG TAB PO SCH (10:08)
[2022-11-24] MEDS: Aspirin 81 mg Enteric Coated Tablet PO SCH (10:08)
[2022-11-24] MEDS: Insulin Regular 300 UNITS/3 ML VIAL SC PRN ×2 (10:09→12:25)
[2022-11-24] MEDS: Lantus 1000 UNITS/10 ML VIAL SC SCH (10:09)
[2022-11-24] MEDS: ALPRAZolam 0.25 MG TAB PO PRN (10:09)
[2022-11-24] MEDS: Folic Acid/Vit B Comp W-C PO SCH (10:14)
[2022-11-24] MEDS ORDERED: Heparin 10,000 UNITS/ 10 ML VIAL FS PRN (12:18)
[2022-11-24 12:28] LABS: HBSAg Index 0.17 S/CO (0-0.99); Hep B Surf Ag Non-Reactive S/CO (NonReactive)
[2022-11-24 13:45] VITALS: BP 187/67
[2022-11-24 14:58] LABS: Hep B Core Total Ab Non-Reactive (NonReactive); Hep B Core Total Index 0.11 S/CO (0-0.79); Hep C IgG Ab Non-Reactive (NonReactive); Hep C Index 0.24 S/CO (0-0.79)
[2022-11-24 15:01] LABS: HBSAB Concentration 667.04 mIU/mL; Hep B Surf AB Reactive (NonReactive)
== END 2022-11-24 16:28 | disposition home health service (06) | DRG 638 ==
LOC: CSHERS 01:03 → INTOOBSV 05:30 → CSHERHOLD 05:30 → CSHICU 12:45 → OBSVTOIN 15:42
PROVIDERS: ADMIT Student in an Organized Health Care Education/Training Program; ATTEND Family Medicine
PROC: 02H633Z Insertion of Infusion Device into Right Atrium, Percutaneous Approach (ICD-10-PCS; principal; 2022-11-22)
PROC: B548ZZA Ultrasonography of Superior Vena Cava, Guidance (ICD-10-PCS; 2022-11-22)
PROC: 5A09457 Assistance with Respiratory Ventilation, 24-96 Consecutive Hours, Continuous Positive Airway Pressure (ICD-10-PCS; 2022-11-22)
DX: E11.649 Type 2 diabetes mellitus with hypoglycemia without coma (principal); I12.0 Hypertensive chronic kidney disease with stage 5 chronic kidney disease or end stage renal disease; N18.6 End stage renal disease; R82.81 Pyuria; R31.9 Hematuria, unspecified; D63.1 Anemia in chronic kidney disease; D69.6 Thrombocytopenia, unspecified; E78.5 Hyperlipidemia, unspecified; I25.10 Atherosclerotic heart disease of native coronary artery without angina pectoris; T38.3X5A Adverse effect of insulin and oral hypoglycemic [antidiabetic] drugs, initial encounter; E11.22 Type 2 diabetes mellitus with diabetic chronic kidney disease; R41.0 Disorientation, unspecified; Z88.8 Allergy status to other drugs, medicaments and biological substances; Z79.4 Long term (current) use of insulin; Z99.2 Dependence on renal dialysis; Z79.84 Long term (current) use of oral hypoglycemic drugs; Z95.1 Presence of aortocoronary bypass graft; Z79.899 Other long term (current) drug therapy; Z79.890 Hormone replacement therapy; Z98.890 Other specified postprocedural states; Z89.422 Acquired absence of other left toe(s); Z79.82 Long term (current) use of aspirin; Z20.822 Contact with and (suspected) exposure to COVID-19
CPT/HCPCS: 36415; 36416; 71045; 80053; 80306; 81001; 82533; 83036; 83605; 83690; 83735; 84100; 84145; 84443; 85025; 86704; 87040; 87086; 87899; 90935; 94660; 94760; A4217; G0257; G0378; J0360; J0696; J1611; J1644; J1815; J1940; J2354; J2405; J2550; J2920; J3490; J7999; Q5105; S0028; U0002

== ENCOUNTER 2022-12-02 03:26 | Emergency (ER) | payer OTHER ==
[2022-12-02 05:53] LABS: ALT (SGPT) 146 U/L (8-55); AST (SGOT) 197 U/L (5-34); Albumin 3.3 g/dL (3.5-5.0); Alkaline Phosphatase 246 U/L (40-110); Anion Gap 19 mmol/L (10-20); BUN (Urea Nitrogen) 76 mg/dL (8.4-25.7); Bilirubin, Total 0.5 mg/dL (0.2-1.2); Calc. Creatinine Clearance 0 mL/min (70-130); Calcium 8.6 mg/dL (7.8-10.44); Carbon Dioxide 22 mmol/L (22-29); Chloride 101 mmol/L (98-107); Estimated GFR 7; Globulin 3.1 g/dL (2.4-3.5); Glucose 211 mg/dL (70-105); Potassium 3.9 mmol/L (3.5-5.1); Protein, Total 6.4 g/dL (6.0-8.3); Sodium 138 mmol/L (136-145)
[2022-12-02 05:55] LABS: #Monocytes 0.5 10x3/uL (0.0-1.1); #Neutrophils 4.5 10x3/uL (1.5-8.4); %Basophils 0.2 % (0.0-2.0); %Eosinophils 0.7 % (0.0-6.0); %Lymphocytes 14.9 % (18.0-47.0); %Monocytes 8.9 % (0.0-10.0); %Neutrophils 74.8 % (40.0-75.0); Mean Corpuscular HGB CONC 32.4 g/dL (32.0-36.0); Mean Corpuscular Volume 101.9 fl (81.2-95.1); Mean Platelet Volume 13.2 fl (7.4-10.4); Platelet Count 74 10x3/uL (150-450); Platelet Morphology Comment Appears Decreased; RBC Distribution Width 14.4 % (11.5-14.5); RBC Morphology Normal; Red Blood Cell (RBC) Count 2.12 10x6/uL (4.32-5.72)
== END 2022-12-02 04:45 | disposition home or self-care (01) ==
LOC: CSHERS 03:26
DX: J81.1 Chronic pulmonary edema (principal); D64.9 Anemia, unspecified; R06.00 Dyspnea, unspecified
CPT/HCPCS: 71045; 80053; 83880; 85025